=== PATIENT | male | born 1975 | race Two or more races ===

== ENCOUNTER 2019-11-10 10:30 | Inpatient (IN) | payer OTHER ==
[~2019-11-10] VITALS: Ht 177.8 cm; Wt 78.0 kg
== END 2019-11-18 17:16 | disposition home or self-care (01) | DRG 331 ==
LOC: O/R 11-15 07:00 → SURG 11-16 10:38
PROVIDERS: ADMIT Colon & Rectal Surgery
PROC: 0DJD8ZZ Inspection of Lower Intestinal Tract, Via Natural or Artificial Opening Endoscopic (ICD-10-PCS; 2019-11-15)
PROC: 0DTN4ZZ Resection of Sigmoid Colon, Percutaneous Endoscopic Approach (ICD-10-PCS; principal; 2019-11-15 07:00)
DX: K57.32 Diverticulitis of large intestine without perforation or abscess without bleeding (principal)

== ENCOUNTER 2020-12-07 05:50 | Day surgery (SDC) | payer OTHER | END 2020-12-07 09:30 | disposition home or self-care (01) | LOC: AMB-ENDOS 05:50 | PROVIDERS: ATTEND Colon & Rectal Surgery | DX: K57.32 Diverticulitis of large intestine without perforation or abscess without bleeding (principal); K64.1 Second degree hemorrhoids; Z20.822 Contact with and (suspected) exposure to COVID-19 ==